=== PATIENT | male | born 1970 | race Caucasian/White ===

== ENCOUNTER 2023-09-29 20:41 | Emergency (ER) | payer OTHER ==
[2023-09-29] MEDS ORDERED: TETRACAINE 0.5% OPHTH SOLN 2 ML BOTTLE ONE (20:53)
[2023-09-29] MEDS ORDERED: FLUORESCEIN NA 1 EA STRIP ONE (20:54)
[2023-09-29 20:58] VITALS: BP 146/88; PULSE 70; RESP 16; TEMP 97.7; BMI 26.6
[2023-09-29] MEDS ORDERED: ONDANSETRON *ODT* 4 MG TABLET ONE (21:02)
[2023-09-29] MEDS ORDERED: CIPROFLOXACIN HCL 0.3% OPHTH 2.5ML BOTTLE ONE (21:05)
[2023-09-29] MEDS: CIPROFLOXACIN 0.3% EYE DROPS 5 ML BOTTLE OS STA (21:06)
[2023-09-29] MEDS ORDERED: KETOROLAC TROMETHAMINE 60 MG/2 ML VIAL ONE (21:09)
[2023-09-29] MEDS: KETOROLAC TROMETHAMINE 60 MG/2 ML VIAL IM ONE (21:12)
[2023-09-29] MEDS: TETRACAINE 0.5% HCL 0.6ML DROPPER.BOTTLE OS STA (21:17)
== END 2023-09-29 21:17 | disposition home or self-care (01) ==
LOC: FER 20:41
PROC: 3E0133Z Introduction of Anti-inflammatory into Subcutaneous Tissue, Percutaneous Approach (ICD-10-PCS; principal; 2023-09-29)
DX: S05.02XA Injury of conjunctiva and corneal abrasion without foreign body, left eye, initial encounter (principal); W22.8XXA Striking against or struck by other objects, initial encounter
CPT/HCPCS: 99284-25